=== PATIENT | female | born 1955 | race Caucasian/White ===

== ENCOUNTER 2017-10-06 06:13 | Inpatient (IN) | payer OTHER ==
[2017-10-06] MEDS ORDERED: morphine SULFATE/PF (10 MG/10 ML) INJ (07:00)
[2017-10-06] MEDS ORDERED: CEFAZOLIN 2 GM/50 ML (PMX) 50 ML IVPB (07:00)
[2017-10-06] MEDS ORDERED: LIDOCAINE 2% (SDV) 5 ML INJ (07:00)
[2017-10-06] MEDS: HIP PAIN COCKTAIL (CEFUROXIME) INJ ×2 (08:30→11:54)
[2017-10-06] MEDS: DEXAMETHASONE 4 MG/ML 1 ML INJ IV (08:55)
[2017-10-06] MEDS: LACTATED RINGER'S 1,000 ML IV* (08:55)
[2017-10-06] MEDS: ONDANSETRON 4 MG INJ IV ×4 (08:56→23:00)
[2017-10-06] MEDS: LANSOPRAZOLE 30 MG CAP PO (08:56)
[2017-10-06] MEDS: oxyCODONE (CR) 10 MG TAB [oxyCONTIN] PO (08:56)
[2017-10-06] MEDS: ACETAMINOPHEN 1000MG/100ML IV 100 ML IVPB (08:57)
[2017-10-06] MEDS: SOD CHLORIDE 0.9% 1,000 ML IV ×2 (10:27→18:36)
[2017-10-06] MEDS ORDERED: SENNA/DOCUSATE NA (8.6MG/50MG) TAB PO (10:30)
[2017-10-06] MEDS ORDERED: MAGNESIUM HYDROXIDE 30ML CUP PO (10:30)
[2017-10-06] MEDS ORDERED: NA PHOSPHATE/BIPHOS 133 ML ENEMA PR (10:30)
[2017-10-06] MEDS ORDERED: NALOXONE (0.4 MG/ML) INJ IV (10:30)
[2017-10-06] MEDS ORDERED: BISACODYL 10 MG SUPP PR (10:30)
[2017-10-06] MEDS ORDERED: DIPHENHYDRAMINE 50 MG INJ IV ×2 (10:30→12:00)
[2017-10-06] MEDS ORDERED: BUPIVACAINE 0.75%/DEXT (SPINAL) 2 ML INJ (10:58)
[2017-10-06] MEDS: TRANEXAMIC ACID 1,000 MG in NS 100 ML PRE-OP X1 IVPB (11:30)
[2017-10-06] MEDS ORDERED: POLYMYXIN B 500000 UNIT INJ (11:32)
[2017-10-06] MEDS: TRANEXAMIC ACID 1,000 MG in NS 100 ML INTRA-OP X1 IVPB (11:53)
[2017-10-06] MEDS: POLYMYXIN/BACITRACIN 1L IRRIG IRR (11:55)
[2017-10-06] MEDS: BACITRACIN 50000 UNITS INJ IRR (11:55)
[2017-10-06] MEDS: POLYMYXIN B 500000 UNIT INJ IRR (11:55)
[2017-10-06] MEDS ORDERED: ONDANSETRON 4 MG INJ IV (12:00)
[2017-10-06] MEDS ORDERED: HYDROmorphONE 1 MG/5 ML IV SYRINGE IV ×3 (12:00)
[2017-10-06] MEDS ORDERED: FENTAnyl 50 MCG/ML VIAL IV (12:00)
[2017-10-06] MEDS ORDERED: METOCLOPRAMIDE 10 MG INJ IV (12:00)
[2017-10-06] MEDS ORDERED: MEPERIDINE 25 MG INJ IV (12:00)
[2017-10-06] MEDS ORDERED: ROCURONIUM 50 MG INJ (12:51)
[2017-10-06] MEDS ORDERED: PROPOFOL 20 ML (12:51)
[2017-10-06] MEDS ORDERED: CEFAZOLIN 1 GM INJ (12:51)
[2017-10-06] MEDS ORDERED: SUCCINYLCHOLINE CHLORIDE 100 MG/5 ML SYG IV (12:51)
[2017-10-06] MEDS ORDERED: SUGAMMADEX SODIUM 200 MG/2 ML VIAL IV (12:51)
[2017-10-06] MEDS: FENTAnyl 50 MCG/ML VIAL IV (13:46)
[2017-10-06] MEDS: DOCUSATE SODIUM 100 MG CAP PO (13:49)
[2017-10-06] MEDS: ASPIRIN (EC) 325 MG TAB PO ×2 (13:49→21:12)
[2017-10-06] MEDS: CEFAZOLIN 1 GM/50 ML (PMX) 50 ML IVPB ×2 (13:49→21:14)
[2017-10-06] MEDS: KETOROLAC 15 MG INJ IV (17:03)
[2017-10-06] MEDS: GABAPENTIN 100 MG CAP PO (21:12)
[2017-10-06] MEDS: ACETAMINOPHEN/CODEINE #3 TAB PO (22:03)
[2017-10-07] MEDS: KETOROLAC 15 MG INJ IV (00:30)
[2017-10-07] MEDS: ACETAMINOPHEN/CODEINE #3 TAB PO ×5 (05:04→21:33)
[2017-10-07] MEDS: ONDANSETRON 4 MG INJ IV (05:06)
[2017-10-07] MEDS: CEFAZOLIN 1 GM/50 ML (PMX) 50 ML IVPB (05:08)
[2017-10-07 05:38] LABS: ADD MAN DIFF? NO
[2017-10-07 06:04] LABS: BASOPHILS % 0.2 % (0.0-2.0); HEMATOCRIT 32.5 % (37.0-47.0); HEMOGLOBIN 10.6 g/dl (12.0-16.0); LYMPHOCYTES # 1.5 10^3/ul (0.8-2.9); LYMPHOCYTES % 12.7 % (15.0-51.0); MEAN CORPUSCULAR HEMOGLOBIN 28.3 pg (29.0-33.0); MEAN CORPUSCULAR HGB CONC 32.6 g/dl (32.0-37.0); MEAN CORPUSCULAR VOLUME 86.9 fl (82.0-101.0); MEAN PLATELET VOLUME 9.5 fl (7.4-10.4); MONOCYTE # 0.9 10^3/ul (0.3-0.9); MONOCYTES % 7.4 % (0.0-11.0); NEUTROPHIL # 9.3 10^3/ul (1.6-7.5); NEUTROPHILS % 79.1 % (39.0-77.0); PLATELET COUNT 262 10^3/UL (140-415); RED BLOOD COUNT 3.74 10^6/ul (4.20-5.40); RED CELL DISTRIBUTION WIDTH 13.8 % (11.5-14.5)
[2017-10-07 06:04] LABS: WHITE BLOOD COUNT 11.8 10^3/ul (4.8-10.8)
[2017-10-07] MEDS: BETHANECHOL 25 MG TAB PO (06:08)
[2017-10-07 06:23] LABS: ANION GAP 11 (8-16); BLOOD UREA NITROGEN 14 mg/dl (7-20); CALCIUM 8.4 mg/dl (8.4-10.2); CARBON DIOXIDE 26 mmol/L (21-31); CHLORIDE 107 mmol/L (97-110); CREATININE 0.48 mg/dl (0.44-1.00); GLUCOSE 115 mg/dl (70-220); SODIUM 140 mmol/L (135-144)
[2017-10-07] MEDS: FERROUS FUMARATE (SR) TAB PO ×2 (08:31→20:29)
[2017-10-07] MEDS: GABAPENTIN 100 MG CAP PO ×2 (08:32→20:30)
[2017-10-07] MEDS: CELECOXIB 200 MG CAP PO ×2 (08:32→20:30)
[2017-10-07] MEDS: DOCUSATE SODIUM 100 MG CAP PO ×2 (08:32→20:30)
[2017-10-07] MEDS: ASPIRIN (EC) 325 MG TAB PO ×2 (08:32→20:30)
[2017-10-07] MEDS: SOD CHLORIDE 0.9% 1,000 ML IV ×2 (11:27→23:55)
[2017-10-08] MEDS: ACETAMINOPHEN/CODEINE #3 TAB PO ×3 (02:18→12:59)
[2017-10-08 05:22] LABS: ADD MAN DIFF? NO
[2017-10-08 05:32] LABS: BASOPHILS % 0.5 % (0.0-2.0); EOSINOPHILS # 0.1 10^3/ul (0.0-0.5); EOSINOPHILS % 1.1 % (0.0-7.0); HEMATOCRIT 31.8 % (37.0-47.0); HEMOGLOBIN 10.2 g/dl (12.0-16.0); LYMPHOCYTES # 2.2 10^3/ul (0.8-2.9); LYMPHOCYTES % 27.8 % (15.0-51.0); MEAN CORPUSCULAR HEMOGLOBIN 28.4 pg (29.0-33.0); MEAN CORPUSCULAR HGB CONC 32.1 g/dl (32.0-37.0); MEAN CORPUSCULAR VOLUME 88.6 fl (82.0-101.0); MEAN PLATELET VOLUME 9.6 fl (7.4-10.4); MONOCYTE # 0.9 10^3/ul (0.3-0.9); MONOCYTES % 11.5 % (0.0-11.0); NEUTROPHIL # 4.7 10^3/ul (1.6-7.5); NEUTROPHILS % 58.6 % (39.0-77.0); PLATELET COUNT 228 10^3/UL (140-415); RED BLOOD COUNT 3.59 10^6/ul (4.20-5.40); RED CELL DISTRIBUTION WIDTH 14.1 % (11.5-14.5)
[2017-10-08 05:32] LABS: WHITE BLOOD COUNT 8.1 10^3/ul (4.8-10.8)
[2017-10-08 05:42] LABS: ANION GAP 11 (8-16); BLOOD UREA NITROGEN 12 mg/dl (7-20); CALCIUM 8.3 mg/dl (8.4-10.2); CARBON DIOXIDE 31 mmol/L (21-31); CHLORIDE 105 mmol/L (97-110); CREATININE 0.54 mg/dl (0.44-1.00); GLUCOSE 123 mg/dl (70-220); POTASSIUM 4.6 mmol/L (3.5-5.1); SODIUM 142 mmol/L (135-144)
[2017-10-08] MEDS: PANTOPRAZOLE (EC) 40 MG TAB PO (05:49)
[2017-10-08] MEDS: CELECOXIB 200 MG CAP PO (08:26)
[2017-10-08] MEDS: DOCUSATE SODIUM 100 MG CAP PO (08:26)
[2017-10-08] MEDS: ASPIRIN (EC) 325 MG TAB PO (08:26)
[2017-10-08] MEDS: GABAPENTIN 100 MG CAP PO (08:27)
[2017-10-08] MEDS: FERROUS FUMARATE (SR) TAB PO (08:27)
[2017-10-08] MEDS: SOD CHLORIDE 0.9% 1,000 ML IV (12:27)
== END 2017-10-08 16:15 | disposition home health service (06) | DRG 470 ==
LOC: REC 06:13 → MS1 14:08
PROC: 0SRC069 Replacement of Right Knee Joint with Oxidized Zirconium on Polyethylene Synthetic Substitute, Cemented, Open Approach (ICD-10-PCS; principal; 2017-10-06 10:30)
DX: M17.11 Unilateral primary osteoarthritis, right knee (principal); E66.01 Morbid (severe) obesity due to excess calories; Z68.35 Body mass index [BMI] 35.0-35.9, adult; I10 Essential (primary) hypertension; D64.9 Anemia, unspecified
CPT/HCPCS: 73560; 80048; 85025; 87081; 87086; 88304; 88311; 97116; 97162; 97165; 97530